=== PATIENT | female | born 1940 | race Caucasian/White ===

== ENCOUNTER → 2018-03-31 | Day surgery (SDC) | payer MEDICARE, BC ==
[~2018-03-31] VITALS: Ht 162.6 cm; Wt 63.0 kg
[~2018-03-31] MED LIST: ATACAND32 MG PO; CALCIUM + D 6001 TA1 PO; CALCIUM 600/VIT1 CAP PO; GLUCOPHAGE500 MG/TAB PO; JANUVIA50 MG PO; MULTIVITAMIN FO1 CAP PO; POT CITRATE PO; PYRIDIUM 100MG100 MG PO; TENORMIN 5050 MG/TAB PO; ZOCOR 20MG20 MG PO
[2018-03-31 11:55] VITALS: BP 145/65; PULSE 65; TEMP 98.1
[2018-03-31 14:23] VITALS: BP 142/71; PULSE 57; TEMP 97.4
--- NOTE | 2018-03-31 14:23 | NUR ---
Report received from Nicolette RN and Lindsay RN. Pt brought from PACU to [facility] bay 4 via cart and this RN. Pt alert and oriented. Pt denies any pain or nausea. Monitors on and alarms set. Call light within reach. Family brought to room. Pt requests muffin and diet soda.
[2018-03-31 14:30] VITALS: BP 151/66; PULSE 58
--- NOTE | 2018-03-31 14:40 | NUR ---
Pt taking food and drink well. No complications mentioned.
[2018-03-31 14:45] VITALS: BP 142/80; BP 148/72; PULSE 59
[2018-03-31 15:00] VITALS: BP 147/66; PULSE 57
--- NOTE | 2018-03-31 15:00 | NUR ---
Assumed care from Raj MCDOWELL. Resting and taking water and Sprite.
--- NOTE | 2018-03-31 15:10 | NUR ---
Assisted up to the bathroom. Voids and returns to room.
--- NOTE | 2018-03-31 15:23 | NUR ---
Given dismissal instructions and voices understanding of home cares and follow up as needed.
--- NOTE | 2018-03-31 15:25 | NUR ---
Patient dismissed to home per private vehicle driven by son and taken to the front door per wheelchair and assisted into vehicle by RN.
== END ==
LOC: SDCO 10:56
DX: N13.30 Unspecified hydronephrosis (principal); I10 Essential (primary) hypertension; F17.210 Nicotine dependence, cigarettes, uncomplicated; R12 Heartburn; E11.9 Type 2 diabetes mellitus without complications; Z79.84 Long term (current) use of oral hypoglycemic drugs; Z85.038 Personal history of other malignant neoplasm of large intestine; Z87.442 Personal history of urinary calculi; Z93.3 Colostomy status; Z90.49 Acquired absence of other specified parts of digestive tract
CPT/HCPCS: C1769; C2617; J0690; J2704; J3010; J7030; Q9967

== ENCOUNTER 2019-05-08 01:19 | Inpatient (IN) | payer MEDICARE, BC ==
[~2019-05-08] VITALS: Ht 162.6 cm; Wt 56.3 kg
[2019-05-08 03:31] VITALS: BP 151/53; PULSE 73; TEMP 98.3
[2019-05-08 04:25] LABS: MEAN CELL VOLUME 89 fl (80.0-100.0); MEAN CORPUSCULAR HGB CONC 32 g/dl (33.0-37.0); PLATELET COUNT 213 K/mm3 (130-400); RED BLOOD COUNT 3.34 M/mm3 (4.10-5.30); REDCELL DISTRIBUTION WIDTH-CV 14.5 % (11.5-14.5)
[2019-05-08 04:28] LABS: HEMATOCRIT 29.7 % (37.0-47.0); HEMOGLOBIN 9.5 g/dl (12.5-16.0); MEAN CORPUSCULAR HEMOGLOBIN 28 pg (27.0-31.0)
--- NOTE | 2019-05-08 04:30 | NUR ---
PT ARRIVED TO FLOOR, ORIENTED TO ROOM, WATER BROUGHT TO ROOM.
[2019-05-08 04:35] LABS: CALCIUM 9.5 mg/dL (8.4-10.2); CREATININE, serum 3.53 (0.52-1.25); POTASSIUM 5.1 mmol/L (3.4-5.0)
[2019-05-08] MEDS ORDERED: PROBIOTIC ACID1 EAC3 PO (04:45)
[2019-05-08] MEDS ORDERED: ASPIRIN E.C. 8181 MG PO (04:45)
[2019-05-08] MEDS ORDERED: K-DUR 10 MEQ T10 MEQ PO (04:47)
[2019-05-08 04:50] LABS: BAND 14 % (0-10); EOSINOPHIL 3 % (0-4); LYMPHOCYTE 9 % (20.0-51.0); NEUTROPHILS 60 % (42.0-75.2); PLATELET ESTIMATE NORMAL (NORMAL)
--- NOTE | 2019-05-08 07:37 | NUR ---
PT UA COLLECTED AND SENT TO LAB, ANTIBIOTICS AND FLUIDS ADMINISTERED/HUNG, PT CURRENTLY SLEEPING, MED REC COMPLETED. BED IN LOWEST POSITION, CALL LIGHT WITHIN REACH, SON AND GRANDAUGHTER SLEEPING IN ROOM W/ PT. NO OTHER NEEDS AT THIS TIME, DENYING PAIN AND DISCOMFORT.
[2019-05-08 08:45] VITALS: BP 121/68; PULSE 83; TEMP 99.5
[2019-05-08 10:54] LABS: PH 7 (5-8); SQUAMOUS EPITHELIAL None Seen /hpf; URINE APPEARANCE Cloudy; URINE BACTERIA Rare /hpf; URINE BILIRUBIN Negative (NEGATIVE); URINE BLOOD 1+ (NEGATIVE); URINE COLOR Yellow; URINE GLUCOSE Negative (NEGATIVE); URINE KETONE Negative (NEGATIVE); URINE LEUKOCYTE ESTERASE 3+ (NEGATIVE); URINE NITRATE Negative (NEGATIVE); URINE PROTEIN(semi-quant) 2+ (NEGATIVE); URINE UROBILINOGEN Negative (NEGATIVE)
[2019-05-08 12:08] LABS: COLLECTION METHOD CLEAN CATCH
[2019-05-08 13:14] VITALS: BP 106/48; PULSE 72; TEMP 99.3
[2019-05-08 14:21] LABS: CALCIUM 8.6 mg/dL (8.4-10.2); CREATININE, serum 3.18 (0.52-1.25); POTASSIUM 5.1 mmol/L (3.4-5.0)
[2019-05-08 16:03] VITALS: BP 106/54; PULSE 76; TEMP 99.3
--- NOTE | 2019-05-08 16:24 | NUR ---
Head Neck Surgeon met with patient and patient's son Abdulaziz (ph#[phone]) to discuss discharge planning. Patient lives in [place] and sees Dr. Cara Vigil for primary care. Patient obtains medications from [facility] with no difficulties. Patient does not use any DME and reports independence with ADLS. SW reviewed PT recommendation for either home health or outpatient PT. Patient is agreeable to either and states she will think about it this evening. YAMILKA provided Medicare.gov list of agencies that serve [place]. YAMILKA to continue to follow.
--- NOTE | 2019-05-08 18:28 | NUR ---
Pt has been resting well today, no C/O pain throughout the day. VS have remained stable.
[2019-05-08 21:05] VITALS: BP 104/53; PULSE 74; TEMP 98.8
--- NOTE | 2019-05-08 21:16 | NUR ---
PT IN BED, TABLE, CALL LIGHT, DRINK AT BEDSIDE. FAMILY AT BEDSIDE. DENYING PAIN OR DISCOMFORT, MEDICATIONS GIVEN, REQUESTED JELLO AND ICE CREAM, BROUGHT IN. NO OTHER NEEDS AT THIS TIME. FAMILY REQUESTED LIST OF LAB VALUES.
[2019-05-09 01:12] VITALS: BP 121/52; PULSE 74; TEMP 99.4
[2019-05-09 05:16] VITALS: BP 115/58; PULSE 71; TEMP 99.4
--- NOTE | 2019-05-09 05:18 | NUR ---
ANTIBIOTIC HUNG, NEW FLUID BAG HUNG, I/O TAKEN, DENYING PAIN OR DISCOMFORT, PARTIALLY ORIENTED, PLEASANTLY CONFUSED. UA TAKEN DURING THE NIGHT. BED IN LOWEST POSITION, CALL LIGHT WITHIN REACH, NO OTHER NEEDS AT THIS TIME.
[2019-05-09 07:42] VITALS: BP 115/54; PULSE 65; TEMP 99.2
--- NOTE | 2019-05-09 08:08 | NUR ---
Pt assessment complete. Pt is sitting up in chair following PT. She is A/O x4. Her breathing is even and unlabored on RA. Pt denies SOB. No chest pain or palpitations. Tele in place. New medication discussed with patient. She denies any pain. Héctor DD, cloudy yellow urine. Ostomy bag in place to LLQ of abdomen. IVF infusing without complications. No needs at this time. Call light within reach.
[2019-05-09 08:42] LABS: MEAN CELL VOLUME 92 fl (80.0-100.0); MEAN CORPUSCULAR HGB CONC 31 g/dl (33.0-37.0); MEAN PLATELET VOLUME 10.3 fl (7.4-10.4); PLATELET COUNT 191 K/mm3 (130-400); RED BLOOD COUNT 3.12 M/mm3 (4.10-5.30); REDCELL DISTRIBUTION WIDTH-CV 14.8 % (11.5-14.5)
[2019-05-09 08:43] LABS: HEMATOCRIT 28.7 % (37.0-47.0); HEMOGLOBIN 8.8 g/dl (12.5-16.0); MEAN CORPUSCULAR HEMOGLOBIN 28 pg (27.0-31.0)
[2019-05-09 08:56] LABS: CALCIUM 8.6 mg/dL (8.4-10.2); CREATININE, serum 2.58 (0.52-1.25); MAGNESIUM 1.7 mg/dL (1.6-2.3); PHOSPHOROUS 3.6 mg/dL (2.5-4.5); POTASSIUM 4.8 mmol/L (3.4-5.0)
[2019-05-09 09:41] LABS: BASOPHIL 1 % (0-2); EOSINOPHIL 3 % (0-4); LYMPHOCYTE 19 % (20.0-51.0); NEUTROPHILS 64 % (42.0-75.2)
[2019-05-09 09:43] LABS: BURR CELLS 1+
[2019-05-09 09:44] LABS: OVALOCYTES 1+; PLATELET ESTIMATE NORMAL (NORMAL)
[2019-05-09 11:34] VITALS: BP 127/63; PULSE 58; TEMP 97.6
--- NOTE | 2019-05-09 15:25 | NUR ---
Initial visit; Patient and family thanked Telephone Sterilizer for offering spiritual care.
[2019-05-09 16:59] VITALS: BP 130/55; PULSE 57; TEMP 98.6
--- NOTE | 2019-05-09 19:56 | NUR ---
Shift report received from day nurse, Annette. At time of assessment. patient is sitting in chair, talking on cell phone. She has just finished eating dinner. She does not complain of pain or voice any concerns. 725 ml emptied out of junior at this time. Patient is alert and oriented but voices "this infection" has her feeling mentally foggy. Her feet are significantly discolored, purple/red and pulses are 1+. She says this is common when her legs have bent/sitting in the chair for a long period of time. Will continue to monitor.
[2019-05-10] VITALS: BP 134/57; PULSE 62; TEMP 98.1
[2019-05-10 04:00] VITALS: BP 110/50; PULSE 66; TEMP 98.6
--- NOTE | 2019-05-10 06:07 | NUR ---
Patient has slept for the majority of the night with no complaints. She was woken up twice for vital signs and antibiotic administration but fell right back asleep after that was done. Her vitals this evening were favorable. Will continue to monitor.
[2019-05-10 07:15] VITALS: BP 120/61; PULSE 65; TEMP 98.3
[2019-05-10 08:54] LABS: MEAN CELL VOLUME 91 fl (80.0-100.0); MEAN CORPUSCULAR HGB CONC 31 g/dl (33.0-37.0); MEAN PLATELET VOLUME 10.7 fl (7.4-10.4); PLATELET COUNT 194 K/mm3 (130-400); RED BLOOD COUNT 2.89 M/mm3 (4.10-5.30); REDCELL DISTRIBUTION WIDTH-CV 14.7 % (11.5-14.5)
[2019-05-10 09:00] LABS: HEMATOCRIT 26.4 % (37.0-47.0); HEMOGLOBIN 8.3 g/dl (12.5-16.0); MEAN CORPUSCULAR HEMOGLOBIN 29 pg (27.0-31.0)
[2019-05-10 09:16] LABS: CALCIUM 8.5 mg/dL (8.4-10.2); CREATININE, serum 2.19 (0.52-1.25); POTASSIUM 4.8 mmol/L (3.4-5.0)
[2019-05-10 09:30] LABS: BAND 12 % (0-10); BASOPHIL 1 % (0-2); EOSINOPHIL 13 % (0-4); LYMPHOCYTE 15 % (20.0-51.0); METAMYELOCYTE 1 % (0-0); NEUTROPHILS 57 % (42.0-75.2); OVALOCYTES 1+; PLATELET ESTIMATE NORMAL (NORMAL)
[2019-05-10 09:31] LABS: HYPERSEGMENTED POLYS PRESENT
--- NOTE | 2019-05-10 09:53 | NUR ---
Assessment completed, alert/oriented, vital signs stable, denies pain , she reports feeling much better and stated she got a really good night of rest, having good urine oupput/ junior patent, IV at 75ml/hr, heart RRR/ no A.fib overnight, lungs CTA/ no resp.difficutly ntoed, she has eaten a good breakfast and blood sugars are controlled, she refused renal artery ultrasound as she just had one in 12/2018/ report obtained by radiology and placed on the chart, she is up working with PT and doing well ambulating the hallway, she denies other needs at this time
[2019-05-10 12:22] VITALS: BP 137/60; PULSE 54; TEMP 98.1
[2019-05-10 16:20] VITALS: BP 129/63; PULSE 55; TEMP 98.3
--- NOTE | 2019-05-10 16:58 | NUR ---
Prepress Specialist attended clinical rounds with the team. Patient may discharge today. YAMILKA followed up with patient and patient's son about Home Health. Patient would like to use [facility]. YAMILKA contacted [facility] and faxed referral. YAMILKA followed up with [facility] at 1700 as orders were not in. Georgette advised she was not sure patient would discharge. YAMILKA contacted [facility] to provide update. YAMILKA will fax orders in the morning if patient discharges this evening.
[2019-05-10] MEDS ORDERED: ELIQUIS 2.5 PO (17:54)
[2019-05-10] MEDS ORDERED: OMNICEF 300MG300 MG PO (17:54)
[2019-05-10] MEDS ORDERED: CORDARONE200 MG/TAB PO (17:57)
[2019-05-10] MEDS ORDERED: LOPRESSOR 225 MG/TAB PO (17:58)
--- NOTE | 2019-05-10 18:03 | NUR ---
Discharg orders discussed with patient, isntructed to follow up with PCP, discussed meds/ scripts sent to pharamcy for her, Pharmacist also provided education and voucher for [facility] and tele removed, leaving with her son, I will personally escort them out the door
--- NOTE | 2019-05-11 08:20 | NUR ---
Cyber Engineer faxed discharge orders to [facility] and called to confirm they were received.
== END 2019-05-10 19:02 | disposition home or self-care (01) | DRG 683 ==
LOC: MEDICAL 01:19
PROVIDERS: Hospitalist; Nurse Practitioner Family; Physician Assistant; ADMIT Student in an Organized Health Care Education/Training Program
DX: N17.9 Acute kidney failure, unspecified (principal); E87.1 Hypo-osmolality and hyponatremia; N39.0 Urinary tract infection, site not specified; G93.40 Encephalopathy, unspecified; E78.5 Hyperlipidemia, unspecified; N13.30 Unspecified hydronephrosis; I48.0 Paroxysmal atrial fibrillation; E11.22 Type 2 diabetes mellitus with diabetic chronic kidney disease; N18.9 Chronic kidney disease, unspecified; K80.20 Calculus of gallbladder without cholecystitis without obstruction; K57.90 Diverticulosis of intestine, part unspecified, without perforation or abscess without bleeding; D63.1 Anemia in chronic kidney disease; I35.0 Nonrheumatic aortic (valve) stenosis; I12.9 Hypertensive chronic kidney disease with stage 1 through stage 4 chronic kidney disease, or unspecified chronic kidney disease; K44.9 Diaphragmatic hernia without obstruction or gangrene; J01.90 Acute sinusitis, unspecified; E87.5 Hyperkalemia; F17.210 Nicotine dependence, cigarettes, uncomplicated; Z93.3 Colostomy status; Z85.038 Personal history of other malignant neoplasm of large intestine; Z79.82 Long term (current) use of aspirin; Z79.84 Long term (current) use of oral hypoglycemic drugs; Z88.2 Allergy status to sulfonamides; Z88.0 Allergy status to penicillin; Z88.1 Allergy status to other antibiotic agents
CPT/HCPCS: 99223-AI; 99232-AI; 99239; A4216; J0692; J1650; J1815; J7030; J7120